=== PATIENT | male | born 2000 | race Caucasian/White ===

== ENCOUNTER 2025-05-30 16:22 | Outpatient (AMB) | payer OTHER, SELFPAY ==
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
[2025-05-30 16:34] VITALS: BP 113/68; PULSE 64; RESP 17; TEMP 36.7; O2SAT 96; BMI 29.7
--- OUTSIDE RECORDS SUMMARY | 2025-05-30 20:43 | XMS_ITS | Encounter Summary ---
Author Organization [facility] Address [address] [place] [address] Phone Care Team Providers Care Rivet Sticker Name Role Phone Provider, Errol ALAS Primary Care Provider [phone] Encounter Details Date Type Department Care Team (Late st Contact Info) Description 05/29/2012 Documentation [facility] [address] [place] [address] Family Medicine, Physician [address] [place] [address] Social History Tobacco Use Types Packs/Day Years Used Date Smoking Tobacco: Never Assessed Sex and Gender Information Value Date Recorded Sex Assigned at Not on file Legal Sex Male 5:06 PM EDT Gender Identity Not on file Sexual Orientation Not on file documented as of this encounter Plan of Treatment Not on file documented as of this encounter Visit Diagnoses Not on filedocumented in this encounter Care Teams Rivet Sticker Relationship Specialty Start Date End Date Provider, MD Errol [address] [place] [address] PCP - General Pediatrics 03/03/21 11/28/22 documented as of this encounter
--- OUTSIDE RECORDS SUMMARY | 2025-05-30 20:43 | XMS_ITS | Encounter Summary ---
Author Organization [facility] Address [address] [place] [id number] Phone Care Team Providers Care Offal Baler Name Role Phone Provider, Errol ALAS Primary Care Provider [phone] Encounter Details Date Type Department Care Team (Late st Contact Info) Description 02/02/2017 Conversion Encounter [facility] [address] [place], [place] [id number] Social History Tobacco Use Types Packs/Day Years Used Date Smoking Tobacco: Never Comments:Never smoker Sex and Gender Information Value Date Recorded Sex Assigned at Not on file Legal Sex Male 5:06 PM EDT Gender Identity Not on file Sexual Orientation Not on file documented as of this encounter Plan of Treatment Not on file documented as of this encounter Visit Diagnoses Not on filedocumented in this encounter Care Teams Offal Baler Relationship Specialty Start Date End Date Provider, MD Errol [address] [place] [address] PCP - General Pediatrics 03/03/21 11/28/22 documented as of this encounter
--- OUTSIDE RECORDS SUMMARY | 2025-05-30 20:43 | XMS_ITS | Encounter Summary ---
Author Organization [facility] Address [address] [place] [address] Phone Care Team Providers Care Thermocouple Tester Name Role Phone Provider, Errol ALAS Primary Care Provider [phone] Encounter Details Date Type Department Care Team (Late st Contact Info) Description 06/14/2012 Documentation [facility] [place] [address] [place] [address] Family Medicine, Physician [address] [place] [address] Social History Tobacco Use Types [...] on filedocumented in this encounter Care Teams Thermocouple Tester Relationship Specialty Start Date End Date Provider, MD Errol [address] [place] [address] PCP - General Pediatrics 03/03/21 11/28/22 documented as of this encounter
--- OUTSIDE RECORDS SUMMARY | 2025-05-30 20:43 | XMS_ITS | Clinical Summary ---
Author Organization [facility] Address [address] [place] [id number] Phone Care Team Providers Care Audio Engineer Name Role Phone Unavailable Primary Care Provider Unavailabl e Allergies No known active allergies Medications No known medications Active Problems No known active problems Immunizations Immunization Administration Dates Next Due DTaP 5 01/04/2005, 2,04/06/2001, 001,2000 H1N1 06/09/2009 HPV Vaccine 9 Valent 01/13/2017,01/07/2016,09/20 Hep A, ped/adol 12/19/2013,10/28/2010 Hep B, ped/adol 05/22/2001,2000,2000 Hib (PRP-T) 12/04/2001, 1,01/12/2001, 001 IPV 01/04/2005, 1,01/12/2001, 001 Influenza, injectable, quadrivalent 09/21/2015 Influenza, injectable, trivalent 06/09/2009,02/17 MMR 01/04/2005,08/28/2001 Meningococcal Conj (Menactra) MCV4P 01/26/2018,0 12/01/2011 Pneumococcal Conjugate 12/04/2001,2000,01/12/2001, 001 Tdap 12/01/2011 Varicella 02/14/2007,02/26/2002 Family History Medical History Relation Name Comments Asthma Brother sherin No Known Problems Father Parviz No Known Problems Mother stefanie No Known Problems Sister 1 alexilis No Known Problems Sister 2 sherlyeen Relation Name Status Comments Brother sherin Alive Brother: Asthma Father Parviz Alive Mother stefanie Alive Mother: Alive a nd well Other Family history of *CVA/Stroke, No family history of *Sudden /[place] under 55, No family history of *Heart Disease, Family history of *Dental caries Sister 1 alexilis Alive Sister: Alive a nd well, Healthy, Eczema Sister 2 sherlyeen Alive Social History Tobacco Use Types Packs/Day Years Used Date Smoking Tobacco: Never Smokeless Tobacco: Never Comments:Never smoker Sex and Gender Information Value Date Recorded Sex Assigned at Not on file Legal Sex Male 5:06 PM EDT Gender Identity Not on file Sexual Orientation Not on file Last Filed Vital Signs Vital Sign Reading Time Taken Comments Blood Pressure 124/77 01/26/2018 1:25 PM EDT Pulse 65 01/26/2018 1:25 PM EDT Temperature 36.6 C (97.8 F) 01/26/2018 1:25 PM EDT Respiratory Rate - - Oxygen Saturation - - Inhaled Oxygen Concentration - - Weight 87.5 kg (193 lb) 01/26/2018 1:25 PM EDT Height 170.8 cm (5' 7.25 ) 01/26/2018 1:25 PM ED T Body Mass Index 30 01/26/2018 1:25 PM EDT Plan of Treatment Health Maintenance Due Date Last Done Comments DTaP,Tdap,and Td Vaccines (7 - Td or Tdap) 11/30/2021 12/01/2011, 01/04/2005, 02/26/2002, Additional history exists Influenza Vaccines (#1) 2025 09/21/19 16, 06/09/2009, 02/27/2009 COVID-19 Vaccine ( season) 2025 12/10/2020, 11/19/2020 Hepatitis B Vaccines Completed 05/22/2001, 2000, 2000 HIB Vaccines Completed 12/04/2001, 03/19, 01/12/2001, Additional history exists Pneumococcal Vaccine Completed 12/04/2001, 04/06/2001, 01/12/2001, Additional history exists IPV Vaccines Completed 01/04/2005, 03/19, 01/12/2001, Additional history exists MMR Vaccines Completed 01/04/2005, 08/28/2001 Varicella Vaccines Completed 02/14/2007, 02/26/2002 Hepatitis A Vaccines Completed 12/19/2013, 10/29/19 11 HPV Vaccines Completed 01/13/2017, 12/18, 09/21/2015 Meningococcal Vaccine Completed 01/26/2018, 012 Men B Vaccine Aged Out No longer elig ible based on patient's age to complete this topic
--- OUTSIDE RECORDS SUMMARY | 2025-05-30 20:43 | XMS_ITS | Encounter Summary ---
Author Organization [facility] Address [address] [place] [address] Phone Care Team Providers Care Business Continuity Specialist Name Role Phone Provider, Errol ALAS Primary Care Provider [phone] Encounter Details Date Type Department Care Team (Late st Contact Info) Description 12/25/2009 Documentation [facility] [place] [facility] [address] [place] [address] Family Medicine, Physician [address] [place] [address] Social History Tobacco Use Types [...] on filedocumented in this encounter Care Teams Business Continuity Specialist Relationship Specialty Start Date End Date Provider, MD Errol [address] [place] [address] PCP - General Pediatrics 03/03/21 11/28/22 documented as of this encounter
--- OUTSIDE RECORDS SUMMARY | 2025-05-30 20:43 | XMS_ITS | Encounter Summary ---
Author Organization [facility] Address [address] [place] [address] Phone Care Team Providers Care Bromination Equipment Operator Name Role Phone Provider, Errol ALAS Primary Care Provider Encounter Details Date Type Department Care Team (Late st Contact Info) Description 06/05/2012 Documentation [facility] [place] [place] Family Medicine [address] [place] [address] Family Medicine, Physician [address] [place] [address] Social History Tobacco Use Types [...] on filedocumented in this encounter Care Teams Bromination Equipment Operator Relationship Specialty Start Date End Date Provider, MD Errol [address] [place] [address] PCP - General Pediatrics 03/03/21 11/28/22 documented as of this encounter
== END 2025-05-30 16:54 | disposition home or self-care (01) ==
LOC: HO.HMCFMS 16:22
PROVIDERS: PCP Student in an Organized Health Care Education/Training Program; Visit Provider Student in an Organized Health Care Education/Training Program
DX: M25.512 Pain in left shoulder (principal); E66.3 Overweight

== ENCOUNTER → 2025-05-30 16:22 | Outpatient (BNVA) | payer OTHER, SELFPAY | PROVIDERS: PCP Student in an Organized Health Care Education/Training Program; Visit Provider Student in an Organized Health Care Education/Training Program | DX: Z13.31 Encounter for screening for depression (principal); Z13.39 Encounter for screening examination for other mental health and behavioral disorders | CPT/HCPCS: 96127 ==